=== PATIENT | male | born 1990 | race Caucasian/White ===

== ENCOUNTER 2021-02-22 23:00 | Emergency (ER) | payer OTHER ==
[~2021-02-22 23:00] MED LIST: NAPROSYN500 MG PO; POLYTRIM OP SOL10 ML OD
[2021-02-22 23:50] LABS: HEMOGLOBIN 16.2 gm/dl (14.0-17.5); RED BLOOD COUNT 5.35 M/UL (4.20-5.50); WHITE BLOOD COUNT 8.9 K/UL (4.5-11.0)
[2021-02-23 00:13] LABS: BUN/CREATININE RATIO 12 (0-10)
[2021-02-23] MEDS ORDERED: ASPIRIN CHEWABL81 MG PO (00:45)
== END 2021-02-23 00:50 | disposition home or self-care (01) ==
LOC: ER1 23:00
PROVIDERS: Physician Assistant
DX: R07.9 Chest pain, unspecified (principal)
CPT/HCPCS: 71045; 80053; 82550; 82553; 83874; 83880; 84484; 85025; 93005; 99285

== ENCOUNTER 2021-03-11 11:41 | Emergency (ER) | payer OTHER ==
[~2021-03-11 11:41] MED LIST changes: +ASPIRIN CHEWABL81 MG PO
[2021-03-11 13:39] LABS: HEMOGLOBIN 16.9 gm/dl (14.0-17.5); RED BLOOD COUNT 5.54 M/UL (4.20-5.50); WHITE BLOOD COUNT 9.5 K/UL (4.5-11.0)
[2021-03-11 14:07] LABS: BUN/CREATININE RATIO 11 (0-10)
== END 2021-03-11 15:32 | disposition home or self-care (01) ==
LOC: ER1 11:41
DX: R55 Syncope and collapse (principal); J02.9 Acute pharyngitis, unspecified; R05 Cough; R09.81 Nasal congestion; Z20.822 Contact with and (suspected) exposure to COVID-19; F17.210 Nicotine dependence, cigarettes, uncomplicated
CPT/HCPCS: 71045; 80053; 82550; 82553; 83874; 84439; 84443; 84484; 85025; 85379; 99284; U0002